=== PATIENT | female | born 2000 | race Caucasian/White ===

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

== ENCOUNTER 2021-10-26 10:18 | Outpatient (CLI) | payer BC, SELFPAY | END 2021-10-26 10:19 | disposition home or self-care (01) | LOC: LBO 10:21 | DX: E03.9 Hypothyroidism, unspecified (principal); R63.5 Abnormal weight gain; F41.9 Anxiety disorder, unspecified; R45.851 Suicidal ideations | CPT/HCPCS: 36415; 80053; 80061; 82306; 86376; 83036; 84443; 85025 ==

== ENCOUNTER 2022-02-19 08:11 | Emergency (ER) | payer BC, SELFPAY ==
[2022-02-19 08:18] VITALS: BP 155/77; PULSE 123; RESP 16; TEMP 36.6; O2SAT 98
[2022-02-19 08:51] VITALS: RESP 22
--- NOTE | 2022-02-19 09:08 | ED.GENADUL_ITS ---
Discharge Plan Disposition Patient Disposition: HOME Condition: Stable Discharge Details Clinical Impression: Tongue lesion Primary Care Provider: Jennifer Monge ED Provider: Ricky Bejarano Home Meds and New Rx's Prescriptions: Discontinued lamotrigine [Lamictal] 25 mg tablet See Rx Instructions .ROUTE .COMPLEX Qty: 42 0RF Rx Instructions: Take one tablet by mouth once daily x 14 days, the increase to 2 tabs once daily No Action levothyroxine [Synthroid] 50 mcg tablet 50 mcg PO DAILY Qty: 90 0RF cholecalciferol (vitamin D3) 25 mcg (1,000 unit) capsule 25 mcg PO DAILY Qty: 90 3RF sertraline [Zoloft] 100 mg tablet 100 mg PO DAILY Qty: 90 2RF sertraline [Zoloft] 50 mg tablet 50 mg PO DAILY Qty: 90 2RF quetiapine [Seroquel] 50 mg tablet 50 mg PO QHS Qty: 90 1RF quetiapine [Seroquel] 25 mg tablet 25 mg PO QHS Qty: 90 1RF methylphenidate HCl [Concerta] 54 mg tablet extended release 24hr 54 mg PO DAILY MDD 1 Qty: 30 0RF Discharge Instructions Instructions: Evans-Óscar Syndrome (DC) Additional Instructions: Please discontinue your lamotrigine. Please speak with your psychiatrist regarding alternate medications. Please return to the emergency department if you develop rash, oral lesions or eye lesions or lesions on your genitalia. Please return to the emergency department he develop trouble speaking swallowing or have any other abnormal symptoms. Medical Decision Making 22-year-old female recently started on lamotrigine for mood stabilization in the setting of depression and ADHD, presents with painful tongue and new tongue lesions, does have small area of induration to the lateral aspect of tongue bilaterally, no disclamation/sloughing, patient has normal voice tolerating secretions no vomiting, no respiratory symptoms, no cutaneous lesions on the rest of the body no involvement of the eyes, patient does have tachycardia on arrival however she is extremely anxious regarding current medical state as well as the drive here. Patient is normoxic with normal blood pressure. Must consider Evans-Óscar's however patient has no cutaneous findings at this time and only mild questionable lingular findings. Must also consider aphthous ulcers versus anxiety. No evidence of dehydration or respiratory compromise at this time. Counseled patient extensively regarding signs of Evans- Óscar/TEN; pending labs and reassessment will likely discharge patient home with strict return precautions for worsening mucosal and cutaneous findings. Will likely have patient discontinue her lamotrigine out of abundance of caution in the interim and encouraged her to follow-up with her primary psychiatrist. 10: 25 patient resting comfortably no acute distress. No progression of symptomatology patient feels better after medication and rest. Tachycardia has completely resolved. Heart rate now 87 bpm. No respiratory distress, tolerating secretions. Again no skin findings externally. Patient Dors that she has stopped her lamotrigine since because of her tongue sensation. Instructed her to remain off of lamotrigine and discuss her symptomatology with her psychiatrist to consider another medication. Given mainly subjective symptoms of tongue with only possible minimal lateral induration to tongue lower suspicion for angela Tito Nik syndrome/TEN; given strict return precautions for cutaneous and mucosal involvement or any worsening symptomatology. Patient feels comfortable going home. HPI General Date/Time Provider Initiated Documentation: 02/19/22 08:33 . HPI Narrative: 22-year-old female history of depression ADHD, recently started on lamotrigine for mood stabilization, presents endorsing discomfort on her tongue and blisters on her tongue that she has not noticed before. Denies trouble swallowing denies vomiting denies trouble breathing denies rash on body such as face arms trunk back genitalia or extremities. 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 Endorses sensation of anxiety, endorses becoming very anxious when she drives. Related Data Home Medications Medication Instructions Recorded Confirmed levothyroxine 50 mcg tablet 50 mcg PO DAILY #90 tabs 12/07/21 02/19/22 (Synthroid) cholecalciferol (vitamin D3) 25 25 mcg PO DAILY #90 caps 01/25/22 02/19/22 mcg (1,000 unit) capsule methylphenidate HCl 54 mg 54 mg PO DAILY #30 tabs 01/25/22 02/19/22 tablet,extended release 24 hr (Concerta) quetiapine 25 mg tablet (Seroquel) 25 mg PO QHS #90 tabs 01/25/22 02/19/22 quetiapine 50 mg tablet (Seroquel) 50 mg PO QHS #90 tabs 01/25/22 02/19/22 sertraline 100 mg tablet (Zoloft) 100 mg PO DAILY #90 tabs 01/25/22 02/19/22 sertraline 50 mg tablet (Zoloft) 50 mg PO DAILY #90 tabs 01/25/22 02/19/22 Previous Rx's Medication Instructions Recorded levothyroxine 50 mcg tablet 50 mcg PO DAILY #90 tabs 12/07/21 (Synthroid) cholecalciferol (vitamin D3) 25 25 mcg PO DAILY #90 caps 01/25/22 mcg (1,000 unit) capsule methylphenidate HCl 54 mg 54 mg PO DAILY #30 tabs 01/25/22 tablet,extended release 24 hr (Concerta) quetiapine 25 mg tablet (Seroquel) 25 mg PO QHS #90 tabs 01/25/22 quetiapine 50 mg tablet (Seroquel) 50 mg PO QHS #90 tabs 01/25/22 sertraline 100 mg tablet (Zoloft) 100 mg PO DAILY #90 tabs 01/25/22 sertraline 50 mg tablet (Zoloft) 50 mg PO DAILY #90 tabs 01/25/22 Allergies Allergy/AdvReac Type Severity Reaction Status Date / Time No Known Allergies Allergy Verified 02/19/22 08:25 General Stated Complaint: GenMedical TAJ: 4 Review of Systems Narrative: Review of Systems Constitutional: negative Eyes: negative ENT: Tongue discomfort Cardiovascular: negative Respiratory: negative Gastrointestinal: negative : negative Musculoskeletal: negative Skin: negative Neurologic: negative Psych: negative PFSH All Active Problems (Updated 02/19/22 @ 10:27 by Ricky Bejarano MD) Tongue lesion (Acute) ADHD (attention deficit hyperactivity disorder), inattentive type (Chronic) Depression (Chronic) Abnormal weight gain (Acute) Suicidal ideation (Chronic) with no specific plan or time line Autism spectrum disorder (Chronic) Meets DSM V criteria; no intellectual disability Hypothyroidism (Acute 01/18/13) Anxiety (Acute 08/29/17) Family History Mother Thyroid disease Father Substance abuse Mental disorder Grandparent Substance abuse Hyperlipidemia Mental disorder Neoplasm Asthma Other Mental disorder Social History Smoking/Tobacco Use Status: Never Smoking risk assessment performed?: Yes Drug use: Never Substance use type: does not use Adopted: No Household members: other Details: mom, dad, 13 year old nephew; has older siblings that do not live at home Housing: house 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 [employer] Pets and animals: Yes Pets and animals: dog(s) Do you think of yourself as: lesbian/wang/homosexual Current gender identity: neither exclusively male nor female How often do you get together with friends or relatives?: never Do you belong to any clubs or organized social groups?: no Panel score (0-1 are the most socially isolated patients): 0 What type of physical activity do you participate in: none Seatbelt use: always Drive intox or ride w/intox guard driver: No Water heater temp set <120 deg: Yes Working smoke detector in home: Yes Fire extinguisher in home: Yes Carbon monox detector in home: Yes Firearms in home: Yes Firearms unloaded and locked: Yes Do you feel safe at home: Yes Exam Narrative Exam Narrative: Physical Examination General: alert, awake, cooperative, mildly anxious HEENT: normocephalic, atraumatic; PERRL, EOM intact, conjunctiva normal; no nasal discharge; moist mucous membranes, noticeable taste buds both anteriorly and posteriorly, possible small area of localized induration to the lateral aspect of tongue bilaterally, midline uvula, tolerating secretions, normal voice, no stridor Neck: supple, trachea midline; full ROM Chest: normal to inspection Respiratory: normal respiratory effort, speaking in full sentences, clear to auscultation, no wheezing, rales or rhonchi Cardiac: Tachycardia, regular rhythm, S1S2 intact, no murmurs rubs or gallops GI: abdomen soft, non-tender, non-distended; no palpable mass or hepatosplenomegaly Skin: no lesions, rashes or trauma appreciated Neuro: AAOx3, normal speech, moving all extremities Psych: Appropriate mood and affect Course Vital Signs Vital signs: Vital Signs Temperature 36.6 C 02/19/22 08:18 Pulse 123 H 02/19/22 08:18 Respiratory Rate 16 02/19/22 08:18 Blood Pressure 155/77 H 02/19/22 08:18 Pulse Oximetry 98 02/19/22 08:18 Temperature 36.6 C 02/19/22 08:18 Temperature Source Temporal Artery Scan 02/19/22 08:18 Pulse 123 H 02/19/22 08:18 Respiratory Rate 22 02/19/22 08:51 Respiratory Effort 02/19/22 08:51 Respiratory Depth Normal 02/19/22 08:51 Respiratory Pattern Normal 02/19/22 08:51 Blood Pressure 155/77 H 02/19/22 08:18 Blood Pressure Position Sitting 02/19/22 08:18 Pulse Oximetry 98 02/19/22 08:18 Oxygen Delivery Method Room Air 02/19/22 08:18 Oxygen Flow Rate 0 02/19/22 08:18 Pain Level 6 02/19/22 08:18
[2022-02-19] MEDS: LORazepam 0.5 MG TAB PO (09:19)
[2022-02-19] MEDS: Ketorolac 15 MG/ML VIAL IVP (09:39)
[2022-02-19] MEDS: Normal Saline 1,000 ML 1000 ML IV (09:42)
[2022-02-19 09:53] LABS: Abs Immature Grans 0.02 10^3/uL (0.0-0.06); Absolute Basophil Count 0.06 10^3/uL (0.0-0.2); Absolute Lymphocyte Count 1.95 10^3/uL (1.2-3.4); Absolute Monocyte Count 0.74 10^3/uL (0.1-0.8); Basophils % 0.8; Eosinophils % 1.3; HCT 40.1 % (36.0-46.0); HGB 13.3 g/dL (11.2-15.7); Immature Grans % 0.3; Lymphocytes % 25.4; MCH 28.2 pg (27.0-33.0); MCHC 33.2 % (32.0-36.0); MCV 85 fL (80-95); MPV 9.5 fL (8.0-11.0); Monocytes % 9.6; Neutrophils % 62.6; Platelet Count 442 10^3/uL (130-400); RBC 4.71 10^6/uL (3.93-5.22); RDW-SD 40.5 fL; WBC 7.67 10^3/uL (4.4-10.8)
[2022-02-19 10:24] LABS: ALT 24 U/L (14-59); AST 16 U/L (15-37); Albumin 3.6 g/dL (3.4-5.0); Alkaline Phosphatase 88 U/L (46-116); Anion Gap 9.1 mmol/L (3-11); BUN 12 mg/dL (7-18); Bilirubin, Total 0.3 mg/dL (0.2-1.0); CO2 25.9 mmol/L (21.0-32.0); CREATININE 0.7 mg/dL (0.55-1.02); Chloride 107 mmol/L (98-107); Glucose 77 mg/dL (74-106); Potassium 3.5 mmol/L (3.5-5.1); Sodium 142 mmol/L (136-145); Total Protein 7.1 g/dL (6.4-8.2)
[2022-02-19 10:53] VITALS: BP 137/86; PULSE 87; RESP 21; O2SAT 100
== END 2022-02-19 10:55 | disposition home or self-care (01) ==
PROVIDERS: Emergency Provider Emergency Medicine
DX: K13.79 Other lesions of oral mucosa (principal)
CPT/HCPCS: 80053; 96361; 96374; 99284; 85025; 99283; J1885

== ENCOUNTER 2022-04-26 14:49 | Outpatient (CLI) | payer BC, SELFPAY | END 2022-04-26 14:50 | disposition home or self-care (01) | LOC: LBO 15:10 | DX: E03.9 Hypothyroidism, unspecified (principal); R63.5 Abnormal weight gain; E78.00 Pure hypercholesterolemia, unspecified | CPT/HCPCS: 36415; 80053; 80061; 82306; 82784; 83516; 82728; 83036; 84439; 84443; 85025 ==